=== PATIENT | male | born 1960 | race Caucasian/White ===

== ENCOUNTER 2016-07-12 09:31 | Day surgery (SDC) | payer BC, OTHER ==
--- NOTE | 2016-07-07 10:32 | HISTORY AND PHYSICAL E ---
History and Physical NAME: FRACISCO MOORE : 1960 AGE: 55Y ADMITTED: 07/12/2016 ROOM: CHIEF COMPLAINT: Abdominal pain, reflux. HISTORY OF PRESENT ILLNESS: I saw the patient in 2010. Upper scope at that time showed esophagitis, gastritis, duodenitis. The patient has not seen me in a few years. He stated that he had an accident which caused him severe chronic pain in his left leg and left ankle. The patient did have ultrasound showing fatty liver. He is complaining of ventral hernia, abdominal pain, abdominal aortic aneurysm. The patient is being followed for his sarcoidosis at [place] and his primary is Dr. Glenn Hansen. He is being followed for chest pain. PHYSICAL EXAMINATION: GENERAL: Pleasant, alert, oriented. VITAL SIGNS: Blood pressure 140/80, pulse 80, respirations 18, temp 98. HEENT: Normal. NECK: Supple. LUNGS: Clear. ABDOMEN: Soft. NEUROLOGIC: Negative. MEDICATIONS: 1. Lyrica. 2. Celebrex. 3. Cymbalta. 4. Prednisone. 5. Xanax. 6. Dexilant. 7. Micardis. 8. . 9. Testosterone. 10. Vitamin D. PLAN: The patient needs to have 100 mg hydrocortisone IV prior to endoscopy because of history of treatment with prednisone. The patient takes it for sarcoidosis, chronic pain syndrome, fibromyalgia. 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 DICTATING PHYSICIAN: DEANN ALEXANDRA M.D. [id number] PHY#: [id number] ID: [id number] JOB#: [id number] ACCT: [id number] cc: >
[~2016-07-12 09:31] MED LIST: EPINEPHRINE INJ 1 MG/10 ML DISP.SYRIN ONE; FENTANYL CITRATE INJ/PF 100 MCG/2 ML AMPUL ONE; FLUMAZENIL INJ 0.5 MG/5 ML VIAL IV ONE; GLYCOPYRROLATE INJ 0.4 MG/2 ML VIAL ONE; HYDROCORTISONE SOD SUCCINATE INJ/PF 100 MG/2 ML SDV IV PRN; MIDAZOLAM 2 MG/2 ML INJ ONE; NALOXONE HCL INJ/PF 0.4 MG/1 ML SDV ONE; ONDANSETRON HCL INJ/PF 4 MG/2 ML SDV ONE; PROMETHAZINE HCL INJ 25 MG/1 ML VIAL ONE
[2016-07-12] MEDS: MIDAZOLAM 2 MG/2 ML INJ ONE ×2 (10:15→10:20)
[2016-07-12 11:25] LABS: HEMOGLOBIN 16.3 g/dL (13.5-17.0); HGB HCT DIFFERENCE 0.9; MEAN CORPUSCULAR HEMOGLOBIN 30.8 pg (27.0-33.4); MEAN CORPUSCULAR VOLUME 91 fl (80-97); RED CELL DISTRIBUTION WIDTH 12.5 % (11.5-14.0); WHITE BLOOD COUNT 8.9 10^3/uL (4.0-10.5)
[2016-07-12 11:28] VITALS: BP 119/76
[2016-07-12 11:45] LABS: IRON 51.7 ug/dL (49-181)
--- NOTE | 2016-07-12 12:17 | OPERATIVE REPORT E ---
Operative Report NAME: FRACISCO MOORE : 1960 AGE: 55Y DATE OF SURGERY: 07/12/2016 ROOM: The patient is 55. PREOPERATIVE DIAGNOSES: 1. Abdominal pain. 2. History of sarcoidosis. 3. History of chronic pain. ALLERGIES: 1. METHOTREXATE. 2. DICOPHANE. 3. HYDROXYCHLOROQUINE. POSTOPERATIVE DIAGNOSES: 1. Esophagitis, mild. 2. Gastritis, mild. 3. Duodenitis, mild. PROCEDURES: 1. Esophagoscopy. 2. Gastroscopy. 3. Duodenoscopy. SURGEON: DEANN ALEXANDRA M.D. TISSUE REMOVED OR ALTERED: None. FINDINGS: No ulcers. Some sluggish in the peristalsis. Mild esophagitis. Mild gastritis. Mild duodenitis. No bleeding. No malignancy. DESCRIPTION OF PROCEDURE: The baby scope passed under guided vision. No difficulties. Esophagoscopy: Junction at 40 cm, mild esophagitis. Gastroscopy: Some sluggishness and some retained food. Mild gastritis. No ulcers. Duodenoscopy: No ulcers. Mild duodenitis. CONCLUSION: 1. No hernia. 2. No ulcers. 3. No malignancy. 4. Mild esophagitis. 5. Mild gastritis. 6. Mild duodenitis. The patient tolerated the procedure well and discharged to room in stable condition. Will discuss with the patient regarding colon screening if not done in the last 5 years. DICTATING PHYSICIAN: DEANN ALEXANDRA M.D. [id number] PHY#: [id number] ID: [id number] JOB#: [id number] ACCT: [id number] cc:JACK PARRA MAHMOUD M.D. >
--- NOTE | 2016-07-12 12:18 | DISCHARGE SUMMARY E ---
Discharge Summary NAME: FRACISCO MOORE : 1960 AGE: 55Y ADMITTED: 07/12/2016 DISCHARGED: 07/12/2016 PROCEDURE: EGD. HISTORY: A 55-year-old male presented with abdominal pain. Patient has history of sarcoidosis. Patient does have history of pneumonia, hypertension, arthritis, sarcoidosis, complex regional pain syndrome. HOSPITAL COURSE: Upper scope today shows no ulcers. Upper scope: No ulcers, no bleeding. VITAL SIGNS: Temp is 96. Pulse 70. Respirations 16. Blood pressure 127/76. DISCHARGE PLAN: Discussed findings with patient. Continue present management. Consider screening colonoscopy. DICTATING PHYSICIAN: DEANN ALEXANDRA M.D. [id number] PHY#: [id number] ID: [id number] JOB#: [id number] ACCT: [id number] cc:JACK PARRA MAHMOUD M.D. >
[2016-07-12 12:19] LABS: CARCINOEMBRYONIC ANTIGEN 1.7 ng/mL (<3.0)
== END 2016-07-12 11:30 | disposition home or self-care (01) ==
LOC: END 09:31
PROVIDERS: ATTEND Specialist
PROC: 0DJ08ZZ Inspection of Upper Intestinal Tract, Via Natural or Artificial Opening Endoscopic (ICD-10-PCS; principal; 2016-07-12 10:00)
DX: K20.9 Esophagitis, unspecified (principal); K29.70 Gastritis, unspecified, without bleeding; K76.0 Fatty (change of) liver, not elsewhere classified; K29.80 Duodenitis without bleeding; I10 Essential (primary) hypertension; M19.90 Unspecified osteoarthritis, unspecified site; D86.9 Sarcoidosis, unspecified; G89.4 Chronic pain syndrome; Z79.1 Long term (current) use of non-steroidal anti-inflammatories (NSAID)
CPT/HCPCS: 43235; 36415; 82306; 82607; 82378; 82728; 83540; 85027; J2250; J3010; J1720; J0171; J2310; J2405; J2550; J3490

== ENCOUNTER 2016-09-24 18:52 | Emergency (ER) | payer BC ==
--- NOTE | 2016-09-24 23:04 | ER Document Report ---
HPI - HPI Patient complains to provider of: chronic left ankle pain Onset: Other - years Onset/Duration: Persistent Quality of pain: Achy, Burning Pain Level: 5 Context: 55-year-old male with chronic left ankle pain status post surgery and the diagnosis of RSD is complaining of exacerbation of this pain and generalized body aching. He also has a history of sarcoidosis. No fever or chills. No chest pain or shortness of breath. No nausea vomiting or diarrhea. Associated Symptoms: None Exacerbated by: Movement, Walking Relieved by: Denies Recently seen / treated by doctor: Yes - ROS ROS Unobtainable: Yes ROS unobtainable due to patient's medical condition - DERM Skin Color: Normal Past Medical History - General Information source: Patient - Social History Smoking Status: Current Every Day Smoker Frequency of alcohol use: None Drug Abuse: None Lives with: Spouse/Significant other Family History: Reviewed & Not Pertinent - Past Medical History Cardiac Medical History: Reports: Hx Hypertension Pulmonary Medical History: Reports: Hx Pneumonia Neurological Medical History: Reports: Hx Migraine Renal/ Medical History: Denies: Hx Peritoneal Dialysis Musculoskeltal Medical History: Reports Hx Arthritis, Reports Other - Sarcoidosis Psychiatric Medical History: Reports: Hx Depression Past Surgical History: Reports: Hx Nose Surgery, Hx Orthopedic Surgery - Left hip & Shoulder - Immunizations Hx Diphtheria, Pertussis, Tetanus Vaccination: Yes Hx Pneumococcal Vaccination: 04/24/13 Vertical Provider Document - CONSTITUTIONAL Agree With Documented VS: Yes Exam Limitations: No Limitations General Appearance: No Apparent Distress - INFECTION CONTROL TRAVEL OUTSIDE OF THE [place] IN LAST 30 DAYS: No - HEENT HEENT: Atraumatic, Normocephalic - NECK Neck: Supple - RESPIRATORY Respiratory: Breath Sounds Normal, No Respiratory Distress O2 Sat by Pulse Oximetry: 96 - CARDIOVASCULAR Cardiovascular: Regular Rate, Regular Rhythm - GI/ABDOMEN Gastrointestinal: Abdomen Soft, Abdomen Non-Tender - BACK Back: Normal Inspection - MUSCULOSKELETAL/EXTREMETIES Musculoskeletal/Extremeties: No Edema Notes: left ankle with old scar, no erythema, 2 + dp, not hot. Pt takes 10mg prednisone per day and states that higher dose sometimes heps. Course - Re-evaluation Re-evalutation: 09/25/16 01:12 X-ray are negative - Vital Signs Vital signs: Temp Pulse Resp BP Pulse Ox 98.0 F 95 18 166/104 H 96 09/24/16 19:50 09/24/16 19:50 09/24/16 19:50 09/24/16 19:52 09/24/16 19:50 Discharge - Discharge Clinical Impression: RSD (reflex sympathetic dystrophy) Chronic ankle pain Qualifiers: Laterality: left Qualified Code(s): M25.572 - Pain in left ankle and joints of left foot Condition: Good Disposition: HOME, SELF-CARE Instructions: Chronic Pain Control ([facility]) Additional Instructions: see your doctor on monday for recheck to er any concerns copy of negative xrays given to you
[2016-09-24] MEDS ORDERED: PREDNISONE 10 MG TABLET PO ONE (23:29)
[2016-09-24] MEDS ORDERED: HYDROMORPHONE HCL INJ/PF 2 MG/ML AMPULE IM ONE ×2 (23:30→23:31)
--- NOTE | 2016-09-25 00:16 | RADIOLOGY REPORT (SQ) ---
EXAM DESCRIPTION: FOOT LEFT COMPLETE COMPLETED DATE/TIME: 09/24/2016 11:54 pm REASON FOR STUDY: pain COMPARISON: Left ankle x-ray 09/24/2016 NUMBER OF VIEWS: Three views. TECHNIQUE: AP, lateral and oblique radiographic images acquired of the left foot. LIMITATIONS: None. FINDINGS: MINERALIZATION: Normal. BONES: No acute fracture or dislocation. Partially visualized orthopedic hardware at the distal fibu la. SOFT TISSUES: No soft tissue swelling. No radiopaque foreign body. IMPRESSION: No radiographic evidence of acute injury. TECHNICAL DOCUMENTATION: JOB ID: [id number] 2010 [email or web address]- All Rights Reserved
--- NOTE | 2016-09-25 00:19 | RADIOLOGY REPORT (SQ) ---
EXAM DESCRIPTION: ANKLE LEFT COMPLETE COMPLETED DATE/TIME: 09/24/2016 11:54 pm REASON FOR STUDY: pain COMPARISON: Left ankle x-ray 01/16/2015. NUMBER OF VIEWS: Three views. TECHNIQUE: AP, lateral, and oblique radiographic images acquired of the left ankle. LIMITATIONS: None. FINDINGS: MINERALIZATION: Normal. BONES: No acute fracture or dislocation. Orthopedic hardware transfixing the distal fibula. The ort hopedic hardware appears intact. The ankle mortise is maintained. JOINTS: No effusion. SOFT TISSUES: No soft tissue swelling. No radiopaque foreign body. IMPRESSION: No radiographic evidence of acute injury. Postsurgical changes at the distal fibula. TECHNICAL DOCUMENTATION: JOB ID: [id number] 2010 [employer]- All Rights Reserved
[2016-09-25] MEDS ORDERED: HYDROMORPHONE HCL INJ/PF 2 MG/ML AMPULE IM ONE ×2 (01:11)
[2016-09-25 01:42] VITALS: BP 147/89
== END 2016-09-25 01:40 | disposition home or self-care (01) ==
LOC: ER 18:52
DX: G90.522 Complex regional pain syndrome I of left lower limb (principal); M25.572 Pain in left ankle and joints of left foot; Z98.890 Other specified postprocedural states; D86.9 Sarcoidosis, unspecified; F17.200 Nicotine dependence, unspecified, uncomplicated; I10 Essential (primary) hypertension; Z79.52 Long term (current) use of systemic steroids
CPT/HCPCS: 99283; 96372; 73610; 73630; J1170 ×2; J7512

== ENCOUNTER 2017-01-31 07:28 | Day surgery (SDC) | payer BC ==
--- NOTE | 2017-01-24 13:52 | HISTORY AND PHYSICAL E ---
History and Physical NAME: FRACISCO MOORE : 1960 AGE: 56Y ADMITTED: 01/31/2017 ROOM: CHIEF COMPLAINT: Patient admitted for colon screening. REVIEW OF SYSTEMS: Patient did have upper scope 08/18/10 showing esophagitis, gastritis, no ulcers. He did have some gastritis. SUBJECTIVE: The patient presented at this time regarding colonoscopy. Ultrasound shows mild fatty liver, spleen normal, pancreas normal, lung bases normal. The patient presented at this time regarding colonoscopy. Chest x-ray shows no acute cardiopulmonary disease. PAST MEDICAL HISTORY: Cardiac - Hypertension, high cholesterol. Patient does have history of sarcoidosis, reflux, abdominal pain, anxiety, depression. The patient does have history of ventral hernia. FAMILY HISTORY: Father had aortic aneurysm. Mom has history of heart disease. PHYSICAL EXAMINATION: GENERAL: Pleasant, alert, oriented. VITAL SIGNS: Weight 144, blood pressure 100/60, pulse 80, respirations 18, temp 98. HEENT: Normal. ABDOMEN: Soft. NEUROLOGIC: Exam is negative. CONCLUSIONS: Colon screening. DIAGNOSTICS: Upper scope shows no malignancy, reflux, gastritis, duodenitis. CEA is normal at 1.7. Sarcoidosis and reflux. MEDICATIONS: The patient takes Lyrica, Celebrex, Cymbalta, prednisone, Xanax, Dexilant, Micardis, hydrochlorothiazide, trazodone, testosterone, vitamin D, B12 and Fosamax. PLAN: Colonoscopy, admit 01/31/2017. DICTATING PHYSICIAN: DEANN ALEXANDRA M.D. [id number] PHY#: [id number] ID: [id number] JOB#: [id number] ACCT: [id number] cc:JACK PARRA M.D., MAHMOUD M.D. >
[2017-01-31] MEDS ORDERED: NALOXONE HCL INJ/PF 0.4 MG/1 ML SDV ONE (07:32)
[2017-01-31] MEDS ORDERED: ONDANSETRON HCL INJ/PF 4 MG/2 ML SDV ONE (07:32)
[2017-01-31] MEDS ORDERED: GLYCOPYRROLATE INJ 0.4 MG/2 ML VIAL ONE (07:32)
[2017-01-31] MEDS ORDERED: LIDOCAINE 2% JELLY 30 ML TUBE ONE (07:32)
[2017-01-31] MEDS ORDERED: GLUCAGON,HUMAN RECOMB 1 MG INJ ONE (07:33)
[2017-01-31] MEDS ORDERED: EPINEPHRINE INJ 1 MG/10 ML DISP.SYRIN ONE (07:33)
[2017-01-31] MEDS ORDERED: FLUMAZENIL INJ 0.5 MG/5 ML VIAL ONE (07:33)
[2017-01-31] MEDS: MIDAZOLAM 2 MG/2 ML INJ ONE ×2 (08:50→08:54)
[2017-01-31] MEDS: FENTANYL CITRATE INJ/PF 100 MCG/2 ML AMPUL ONE ×2 (08:52→08:57)
[2017-01-31 10:43] VITALS: BP 124/55
[2017-01-31 10:51] LABS: ABSOLUTE EOSINOPHILS # (AUTO) 0.2 10^3/uL (0.0-0.6); ABSOLUTE LYMPHOCYTES (AUTO) 2.3 10^3/uL (0.5-4.7); ABSOLUTE MONOCYTES (AUTO) 0.9 10^3/uL (0.1-1.4); ABSOLUTE NEUT (AUTO) 7.9 10^3/uL (1.7-8.2); BASOPHILS % (AUTO) 0.3 % (0-2); EOSINOPHILS % (AUTO) 1.7 % (0-6); HEMATOCRIT 45.9 % (37.9-51.0); HEMOGLOBIN 15.8 g/dL (13.5-17.0); HGB HCT DIFFERENCE 1.5; LYMPHOCYTES % (AUTO) 20.3 % (13-45); MEAN CORPUSCULAR HEMOGLOBIN 30.3 pg (27.0-33.4); MEAN CORPUSCULAR HGB CONC 34.4 g/dL (32.0-36.0); MEAN CORPUSCULAR VOLUME 88 fl (80-97); MONOCYTES % (AUTO) 7.8 % (3-13); RED BLOOD COUNT 5.21 10^6/uL (4.35-5.55); SEGMENTED NEUTROPHILS % (AUTO) 69.9 % (42-78); WHITE BLOOD COUNT 11.3 10^3/uL (4.0-10.5)
--- NOTE | 2017-01-31 11:19 | DISCHARGE SUMMARY E ---
Discharge Summary NAME: FRACISCO MOORE : 1960 AGE: 56Y ADMITTED: 01/31/2017 DISCHARGED: 01/31/2017 PREOPERATIVE DIAGNOSES: Abdominal pain, constipation, colon screening. POSTOPERATIVE DIAGNOSIS: No polyps. Inadequate prep. HISTORY: Patient is a 56-year-old complaining of abdominal pain and constipation. Colon screening showed no polyps. Redundant colon. Moderate amount of full liquid stool. DISCHARGE PLAN: Soft diet. Consider followup colonoscopy 2 years with better prep. Patient has enlarged prostate. We will do prostate specific antigen and baseline CBC. Patient has seen Dr. Alvarez recently for abdominal pain. Abdominal pain consultation with Dr. Alvarez. No acute findings. Possibility of umbilical hernia. Awaiting official report by Dr. Alvarez regarding abdominal pain. Consultation. We will obtain baseline CBC and prostate specific antigen. Followup office visit in the next few days. DICTATING PHYSICIAN: DEANN ALEXANDRA M.D. [id number] PHY#: [id number] ID: [id number] JOB#: [id number] ACCT: [id number] cc:JACK PARRA M.D., MAHMOUD M.D. >
--- NOTE | 2017-01-31 11:20 | OPERATIVE REPORT E ---
Operative Report NAME: FRACISCO MOORE : 1960 AGE: 56Y DATE OF SURGERY: 01/31/2017 ROOM: PREOPERATIVE DIAGNOSES: Change in bowel habits, constipation, abdominal pain, colon screening. POSTOPERATIVE DIAGNOSIS: No polyps. Inadequate prep. OPERATION: Colonoscopy. SURGEON: DEANN ALEXANDRA M.D. FINDINGS: No polyps. Abdominal pain. Etiology undetermined. Colonoscopy succeeded to the cecum but there was large amount of full liquid stool. Flushing lavage. I reached the cecum but the visualization was not optimal and not complete because stool keeps covering some of the mucosa. We had to rotate the patient left/right supine. PROCEDURE: Rectal exam: Enlarged prostate. Sigmoid descending colon normal. Large amount of full liquid stool. Transverse colon normal. Ascending colon, large amount of stool. Cecum normal. Scope withdrawn from cecum, ascending, transverse, descending, sigmoid, all the way to the rectum. CONCLUSION: Redundant colon. Inadequate prep. No polyps. RECOMMENDATIONS: Followup colonoscopy in 2 years with better prep. DICTATING PHYSICIAN: DEANN ALEXANDRA M.D. [id number] PHY#: [id number] ID: [id number] JOB#: [id number] ACCT: [id number] cc:JACK PARRA M.D., MAHMOUD M.D. >
== END 2017-01-31 10:25 | disposition home or self-care (01) ==
LOC: END 07:28
PROVIDERS: ATTEND Specialist
PROC: 0DJD8ZZ Inspection of Lower Intestinal Tract, Via Natural or Artificial Opening Endoscopic (ICD-10-PCS; principal; 2017-01-31 08:00)
DX: R10.9 Unspecified abdominal pain (principal); K59.00 Constipation, unspecified; R19.4 Change in bowel habit; K76.0 Fatty (change of) liver, not elsewhere classified; N40.0 Benign prostatic hyperplasia without lower urinary tract symptoms; E78.00 Pure hypercholesterolemia, unspecified; I10 Essential (primary) hypertension; D86.9 Sarcoidosis, unspecified; K21.9 Gastro-esophageal reflux disease without esophagitis; Z79.899 Other long term (current) drug therapy; Z79.4 Long term (current) use of insulin
CPT/HCPCS: 45378; 36415; 84153; 85025; J2250; J3010; J1610; J2405; J0171; J2310; J3490

== ENCOUNTER 2018-02-05 09:22 | Day surgery (SDC) | payer BC ==
[~2018-02-05 09:22] MED LIST changes: -EPINEPHRINE INJ 1 MG/10 ML DISP.SYRIN ONE; -FENTANYL CITRATE INJ/PF 100 MCG/2 ML AMPUL ONE; -FLUMAZENIL INJ 0.5 MG/5 ML VIAL IV ONE; -GLYCOPYRROLATE INJ 0.4 MG/2 ML VIAL ONE; -HYDROCORTISONE SOD SUCCINATE INJ/PF 100 MG/2 ML SDV IV PRN; -MIDAZOLAM 2 MG/2 ML INJ ONE; -NALOXONE HCL INJ/PF 0.4 MG/1 ML SDV ONE; -ONDANSETRON HCL INJ/PF 4 MG/2 ML SDV ONE; -PROMETHAZINE HCL INJ 25 MG/1 ML VIAL ONE; +PROPOFOL INJ 200 MG/20 ML VIAL IV ONE
[2018-02-05] MEDS ORDERED: SIMETHICONE 80 MG TAB.CHEW ONE (11:12)
[2018-02-05 11:27] VITALS: BP 125/75
--- NOTE | 2018-02-05 13:31 | Operative Report ---
Operative Report DATE OF SURGERY: 02/05/18 Operative Report: The risks, benefits and alternatives of the procedure including the risk of bleeding, perforation requiring surgery are explained to the patient in detail and informed consent is obtained. Patient is placed in a left, lateral decubital position. Timeout was called. Propofol medication is administered. Rectal examination is done which did not reveal any masses, tears or fissures. An Olympus videoscope was inserted into the patient's rectum. The scope was then carefully advanced all the way to the cecum. The cecum was identified by the usual anatomical landmarks including the ileocecal valve as well as the appendiceal office. Prep is not good. The scope was then sequentially pulled back via the rest segments of the colon including the ascending colon, hepatic flexure, transverse colon, splenic flexure, descending colon and finally into the rectosigmoid portions of the colon. Retroflexion maneuvers performed. CO2 insufflation is performed. Scope withdrawal time was 12 minutes. PREOPERATIVE DIAGNOSIS: Change in bowel habits POSTOPERATIVE DIAGNOSIS: Proctitis status post biopsy. Random biopsies taken in the terminal ileum to rule out Crohn's disease OPERATION: Colonoscopy with biopsy SURGEON: JIMBO MARSHALL ANESTHESIA: LMAC TISSUE REMOVED OR ALTERED: As noted above. COMPLICATIONS: None. ESTIMATED BLOOD LOSS: None. INTRAOPERATIVE FINDINGS: As noted above. PROCEDURE: Patient tolerated the procedure well. No immediate postprocedure complications are noted. Patient discharged in good condition. Discharge date 02/05/2018. Discharge diet: Regular. Discharge activity: Regular. 2-3-week follow-up to discuss findings. Patient is instructed call the office or proceed to the emergency room should there be any further problems or questions. Wait on the pathology and treat as necessary.
== END 2018-02-05 11:20 | disposition home or self-care (01) ==
LOC: END 09:22
PROVIDERS: ATTEND Internal Medicine Gastroenterology
DX: K62.89 Other specified diseases of anus and rectum (principal); I10 Essential (primary) hypertension; R01.1 Cardiac murmur, unspecified; M19.90 Unspecified osteoarthritis, unspecified site; D86.9 Sarcoidosis, unspecified; G90.50 Complex regional pain syndrome I, unspecified; Z88.8 Allergy status to other drugs, medicaments and biological substances; Z79.899 Other long term (current) drug therapy
CPT/HCPCS: 45380; 88305 ×2; J2704; 811

== ENCOUNTER → 2018-08-23 | Outpatient (CLI) | payer MEDICARE, BC ==
--- NOTE | 2018-08-24 15:37 | RADIOLOGY REPORT (SQ) ---
EXAM DESCRIPTION: MRI RT LOWER JOINT WITHOUT COMPLETED DATE/TIME: 08/23/2018 7:19 pm REASON FOR STUDY: M25.561 PAIN IN RIGHT KNEE M25.561 PAIN IN RIGHT KNEE COMPARISON: None. TECHNIQUE: Rightknee images acquired and stored on PACS. Multiplanar images include fat sensitive s equences as T1, water sensitive sequences as FST2 or STIR, cartilage sensitive sequences as FSPD, and gradient echo sequences. LIMITATIONS: None. FINDINGS: JOINT AND BURSAE: Joint effusion. Plica in the medial patellofemoral joint. BONE CORTEX AND MARROW: No alteration of signal to suggest marrow replacement. No worrisome bone lesi ons. No occult fracture. ACL: Mucoid degeneration. No tear. PCL: Intact. MCL: Intact. No periligamentous edema or fluid. LCL: Intact. No periligamentous edema or fluid. MEDIAL MENISCUS: No tears. No abnormal signal. LATERAL MENISCUS: Small nondisplaced flap tear along the undersurface of the mid to posterior meniscu s. No displacement. MEDIAL COMPARTMENT: Cartilage preserved. No bone bruises or reactive marrow edema. No osteophytes. LATERAL COMPARTMENT: Slightly irregular cartilage along the lateral femoral condyle weight-bearing conroy rface. PATELLA: Mild chondromalacia. Small patellofemoral osteophytes. The trochlear cartilage is intact. EXTENSOR MECHANISM: Near complete tear of the quadriceps tendon at the patella insertion. Adjacent e karley and hematoma. Mild retraction of the patellar tendon. SOFT TISSUES: Generalized marked subcutaneous soft tissue swelling. Normal vascular flow. OTHER: No other significant finding. IMPRESSION: Near complete tear of the quadriceps tendon from the patellar insertion with adjacent ed gabby and hematoma. Large joint effusion. Generalized soft tissue edema. Small nondisplaced flap tear along the inferior surface of the posterior horn of the lateral meniscus . Early degenerative changes in the lateral compartment. Mild patellar chondromalacia. TECHNICAL DOCUMENTATION: JOB ID: [id number] [employer]- All Rights Reserved Reading location - IP/workstation name: [email or web address]
== END ==
LOC: RAD 16:30
PROVIDERS: ATTEND Physician Assistant
DX: M25.561 Pain in right knee (principal)

== ENCOUNTER → 2018-08-27 | Outpatient (CLI) | payer MEDICARE, BC ==
[2018-08-27 13:12] LABS: ABSOLUTE LYMPHOCYTES (AUTO) 0.9 10^3/uL (0.5-4.7); ABSOLUTE MONOCYTES (AUTO) 0.6 10^3/uL (0.1-1.4); ABSOLUTE NEUT (AUTO) 9.1 10^3/uL (1.7-8.2); BASOPHILS % (AUTO) 0.3 % (0-2); EOSINOPHILS % (AUTO) 0.4 % (0-6); HEMATOCRIT 46.4 % (37.9-51.0); HEMOGLOBIN 15.7 g/dL (13.5-17.0); LYMPHOCYTES % (AUTO) 8.6 % (13-45); MEAN CORPUSCULAR HEMOGLOBIN 28.7 pg (27.0-33.4); MEAN CORPUSCULAR HGB CONC 33.8 g/dL (32.0-36.0); MEAN CORPUSCULAR VOLUME 85 fl (80-97); MONOCYTES % (AUTO) 5.3 % (3-13); PLATELET COUNT 226 10^3/uL (150-450); RED BLOOD COUNT 5.47 10^6/uL (4.35-5.55); RED CELL DISTRIBUTION WIDTH 12.8 % (11.5-14.0); SEGMENTED NEUTROPHILS % (AUTO) 85.4 % (42-78); TOTAL CELLS COUNTED % (AUTO) 100 %; WHITE BLOOD COUNT 10.6 10^3/uL (4.0-10.5)
[2018-08-27 13:36] LABS: ALANINE AMINOTRANSFERASE 64 U/L (21-72); ALBUMIN 4.3 g/dL (3.5-5.0); ALKALINE PHOSPHATASE 58 U/L (38-126); ANION GAP 11 (5-19); ASPARTATE AMINO TRANSFERASE 37 U/L (17-59); BILIRUBIN,DIRECT 0.3 mg/dL (0.0-0.4); BILIRUBIN,TOTAL 0.9 mg/dL (0.2-1.3); BLOOD UREA NITROGEN 15 mg/dL (7-20); CALCIUM 10.1 mg/dL (8.4-10.2); CARBON DIOXIDE 31 mmol/L (22-30); CHLORIDE 98 mmol/L (98-107); GLUCOSE 102 mg/dL (75-110); SODIUM 139.9 mmol/L (137-145); TOTAL PROTEIN 6.4 g/dL (6.3-8.2)
== END ==
LOC: OD 12:28
PROVIDERS: ATTEND Physician Assistant
DX: Z11.2 Encounter for screening for other bacterial diseases (principal); I10 Essential (primary) hypertension
CPT/HCPCS: 36415; 80053; 85025; 87070

== ENCOUNTER → 2018-10-29 | Outpatient (CLI) | payer MEDICARE, BC ==
[2018-10-29 17:27] LABS: ABSOLUTE LYMPHOCYTES (AUTO) 0.8 10^3/uL (0.5-4.7); ABSOLUTE MONOCYTES (AUTO) 0.4 10^3/uL (0.1-1.4); BASOPHILS % (AUTO) 0.5 % (0-2); EOSINOPHILS % (AUTO) 0.5 % (0-6); LYMPHOCYTES % (AUTO) 9.7 % (13-45); MEAN CORPUSCULAR HEMOGLOBIN 28.3 pg (27.0-33.4); MEAN CORPUSCULAR HGB CONC 33.3 g/dL (32.0-36.0); MEAN CORPUSCULAR VOLUME 85 fl (80-97); PLATELET COUNT 208 10^3/uL (150-450); RED CELL DISTRIBUTION WIDTH 14.7 % (11.5-14.0); SEGMENTED NEUTROPHILS % (AUTO) 84.3 % (42-78); TOTAL CELLS COUNTED % (AUTO) 100 %; WHITE BLOOD COUNT 8.3 10^3/uL (4.0-10.5)
[2018-10-29 17:56] LABS: ALANINE AMINOTRANSFERASE 39 U/L (21-72); ALBUMIN 3.9 g/dL (3.5-5.0); ALKALINE PHOSPHATASE 67 U/L (38-126); ANION GAP 6 (5-19); ASPARTATE AMINO TRANSFERASE 27 U/L (17-59); BILIRUBIN,DIRECT 0.2 mg/dL (0.0-0.4); BILIRUBIN,TOTAL 0.5 mg/dL (0.2-1.3); BLOOD UREA NITROGEN 11 mg/dL (7-20); CALCIUM 9.9 mg/dL (8.4-10.2); CARBON DIOXIDE 34 mmol/L (22-30); CHLORIDE 97 mmol/L (98-107); GLUCOSE 104 mg/dL (75-110); SODIUM 137.2 mmol/L (137-145); TOTAL PROTEIN 6.3 g/dL (6.3-8.2)
== END ==
LOC: OD 15:50
PROVIDERS: ATTEND Physician Assistant
DX: I10 Essential (primary) hypertension (principal); Z11.2 Encounter for screening for other bacterial diseases
CPT/HCPCS: 36415; 80053; 85025; 87070

== ENCOUNTER → 2019-05-29 | Outpatient (CLI) | payer MEDICARE, BC ==
--- NOTE | 2019-05-29 15:29 | WOMENS IMAGING REPORT ---
EXAM DESCRIPTION: BONE DENSITY HIP/SPINE COMPLETED DATE/TIME: 05/29/2019 2:16 pm REASON FOR STUDY: M81.8 BONE DENSITY M81.8 OTHER OSTEOPOROSIS WITHOUT CURRENT PATHOLOGICAL FRACTU T 38.0X5A ADVERSE EFFECT OF GLUCOCORT/SYNTH ANALOG, INIT COMPARISON: 09/01/2015 TECHNIQUE: Dual-Energy X-ray Absorptiometry (DEXA) of the AP Spine and Hip. LIMITATIONS: None. FINDINGS: LUMBAR SPINE: The bone mineral density (BMD) measured from L1-L4 in the AP projection correlates with a T-score of -1.3, which is osteopenia as defined by the World Health Organization. BMD Change vs Baseline: +2.7% HIP: The bone mineral density (BMD) measured in the left hip correlates with a T-score of -1.6 in the femo ral neck, which is osteopenia as defined by the World Health Organization. BMD Change vs Baseline: -8.8% 10 year Fracture Risk Assessment: Major Osteoporotic Fracture: Not available. Hip Fracture: Not available. IMPRESSION: 1. LUMBAR SPINE WHO CLASSIFICATION: Osteopenia 2. HIP WHO CLASSIFICATION: Osteopenia OVERALL ASSESSMENT: WHO CLASSIFICATION: Osteopenia COMMENT: The World Health Organization defines low BMD as follows: T-score: Normal: Greater than -1.0 Osteopenia: Between -1.0 and -2.5 Osteoporosis: Less than -2.5 without fractures Established osteoporosis: Less than -2.5 with fractures In general, you may wish to consider: Diagnosis Treatment Follow-up DEXA Normal BMD Prevention 2-3 years Osteopenia Prevention/Therapy 1-2 years Osteoporosis Therapy Yearly TECHNICAL DOCUMENTATION: JOB ID: [id number] [employer]- All Rights Reserved Reading location - IP/workstation name: [email or web address]
== END ==
LOC: WI 13:30
PROVIDERS: ATTEND Internal Medicine Rheumatology
DX: M81.8 Other osteoporosis without current pathological fracture (principal); T38.0X5A Adverse effect of glucocorticoids and synthetic analogues, initial encounter; D86.0 Sarcoidosis of lung
CPT/HCPCS: 77080

== ENCOUNTER → 2020-03-03 | Day surgery (SDC) | payer MEDICARE, BC ==
[~2020-03-03] MED LIST changes: +BUPIVACAINE HCL 0.5 % INJ/PF 30 ML SDV ONE; +LIDOCAINE 1% INJ-PF (10 MG/ML) 30 ML SDV ONE; +METHYLPREDNISOLONE ACETATE INJ 80 MG/1 ML VIAL ONE; -PROPOFOL INJ 200 MG/20 ML VIAL IV ONE
--- NOTE | 2020-03-03 13:06 | RADIOLOGY REPORT (SQ) ---
EXAM DESCRIPTION: INJECT/ASPIR HIP/SHLDR/KNEE; FLUORO/NEEDLE PLACEMENT IMAGES COMPLETED DATE/TIME: 03/03/2020 11:45 am REASON FOR STUDY: (M25.551)PAIN IN RIGHT HIP M25.551 PAIN IN RIGHT HIP COMPARISON: None. FLUOROSCOPY TIME: 0.2 minutes of fluoroscopy was used. 1 images saved to PACS. LIMITATIONS: None. PROCEDURE: SITE OF INJECTION: Right hip LOCALIZING CONTRAST TYPE AND DOSE: 1 mL Omnipaque 300 MEDICATION TYPE AND DOSE: 80 mg Depo-Medrol and 5 mL Sensorcaine Using local anesthesia and sterile technique with fluoroscopic guidance, the needle was advanced into the joint. Iodinated contrast was injected to verify intraarticular placement. This was followed by therapeutic injection of the indicated medications. The needle was removed. There were no immediat e complications. Preprocedure pain level: 3/5. Postprocedure pain level: 0/5. IMPRESSION: THERAPEUTIC INJECTION OF THE RIGHT HIP JOINT ABOVE. COMMENT: Patient medication list reviewed: Yes- Quality ID# [id number]:Eligible professional attests to doc umenting in the medical record they obtained, updated, or reviewed the patient's current medications. . Quality ID [id number]: Final reports for procedures using fluoroscopy that document radiation exposure sena javan, or exposure time and number of fluorographic images (if radiation exposure indices are not avail able) TECHNICAL DOCUMENTATION: JOB ID: [id number] 2010 [email or web address]- All Rights Reserved Reading location - IP/workstation name: [email or web address]
== END ==
LOC: RAD 11:09
PROVIDERS: ATTEND Orthopaedic Surgery Sports Medicine
DX: M25.551 Pain in right hip (principal)
CPT/HCPCS: 20610; 77002; J3490 ×2; J1040